=== PATIENT | male | born 1940 | race Caucasian/White ===

== ENCOUNTER → 2016-10-17 | Outpatient (CLI) | payer MEDICARE, OTHER ==
[~2016-10-17] MED LIST: ACET-1600 PO; ANTIBIOTIC FOR UTI PO; CIPR500T3 PO; FLUC200T PO; LEVO500T33 PO; LOSA50TA6 PO; OXYC10TA72 PO; OXYC15TA PO; PRED20TA PO; SODI650T PO
== END | disposition home or self-care (01) ==
LOC: CVU 09:38
PROVIDERS: ATTEND Family Medicine
DX: M79.1 Myalgia (principal); R25.2 Cramp and spasm; Z86.79 Personal history of other diseases of the circulatory system; M79.652 Pain in left thigh; N18.6 End stage renal disease
CPT/HCPCS: 93922